=== PATIENT | male | born 1975 | race Hispanic/Latino ===

== ENCOUNTER → 2018-08-31 | Day surgery (SDC) | payer OTHER ==
[~2018-08-31] MED LIST: FENTANYL CITRATE/PF 100MCG/2 ML INJ ONE; IOPAMIDOL 200 MG/ML 20 ML VIAL IT ONE; LIDOCAINE HCL 1% 30ML-PF VIAL ONE; LIDOCAINE HCL 2% LOCAL INJ 5 ML SDV VIAL INJ ONE; METAXALONE800 MG PO; MIDAZOLAM HCL 2 MG/2 ML VIAL ONE; NAPROXEN250 MG PO; PROPOFOL IV EMULSION 10 MG/ML 20 ML VIAL ONE; TRIAMCINOLONE ACET 40 MG/ML VIAL ONE
[2018-08-31 07:41] VITALS: BP 108/63
== END | disposition home or self-care (01) ==
LOC: OR 05:29
PROVIDERS: ATTEND Physical Medicine & Rehabilitation Pain Medicine
DX: M47.896 Other spondylosis, lumbar region (principal); M25.511 Pain in right shoulder; R93.7 Abnormal findings on diagnostic imaging of other parts of musculoskeletal system
CPT/HCPCS: 64493; 64494; 64495; J2001 ×2; J2250; J2704; J3301; Q9967; 77003